=== PATIENT | male | born 1985 | race Caucasian/White ===

== ENCOUNTER 2023-03-16 08:08 | Outpatient (REF) | payer OTHER, SELFPAY ==
[2023-03-16 11:57] LABS: Appearance Urine Clear; Color Urine Yellow; Glucose Urine UA Negative (Negative); Leukocyte Esterase Urine Negative (Negative); Nitrite Urine Negative (Negative); Specific Gravity - Urine 1.025 (1.005-1.025); Urine Blood Negative (Negative); Urine Ketones Negative (Negative); Urine Protein Negative (Neg-Trace)
[2023-03-16 12:06] LABS: Alanine Aminotransferase 25 U/L (0-40); Albumin Level 4.3 g/dL (3.5-5.0); Alkaline Phosphatase 44 U/L (39-117); Anion Gap 12 (12-20); Aspartate Amino Transferase 26 U/L (5-37); Bilirubin Total 0.7 mg/dL (0.0-1.0); Blood Urea Nitrogen 13 mg/dL (9-16); Calcium 9.5 mg/dL (8.4-10.2); Carbon Dioxide 26 mmol/L (22-29); Chloride 106 mmol/L (96-108); Cholesterol 239 mg/dL; Estimated Glomerular Filt Rate > 60; Glucose Fasting 127 mg/dL (60-99); HDL Cholesterol 46 mg/dL; LDL Cholesterol Calculated 165 mg/dl; Potassium 4.7 mmol/L (3.3-5.1); Sodium 139 mmol/L (135-145); Total Protein 7.6 g/dL (6.5-8.0); Triglycerides 143 mg/dL
[2023-03-16 12:28] LABS: TSH reflex Free T4 1.86 uIU/mL (0.32-4.0)
[2023-03-16 12:41] LABS: Creatinine Urine 220.83 mg/dL; Microalbum/Creatinine Ratio Ur 13.1 ug/mg cr
== END 2023-03-16 08:09 | disposition home or self-care (01) ==
LOC: HO.WFDLDS 08:08
PROVIDERS: Visit Provider Family Medicine
DX: Z00.00 Encounter for general adult medical examination without abnormal findings (principal); I10 Essential (primary) hypertension
CPT/HCPCS: 36415; 80053; 80061; 81003; 82043; 84443

== ENCOUNTER 2023-03-25 13:55 | Outpatient (AMB) | payer OTHER, SELFPAY ==
[2023-03-25 13:58] VITALS: BP 124/74; PULSE 63; O2SAT 97; BMI 30.3
--- NOTE | 2023-03-25 13:58 | A.OFFPC_ITS ---
Vital Signs 03/25/23 13:58 Height 6 ft 1 in Weight 230 lb BMI 30.3 BP 124/74 Blood Pressure Location Lt brachial Position Sitting Pulse 63 Pulse Source Pulse Oximeter Temp Source Oral Pulse Oximetry (%) 97 Oxygen Delivery Method Room Air Intake Visit Reasons: CPE with f/u labs and health maintenance Intake Note: Patient is here for a physical and follow up on labs. Allergies No Known Allergies Allergy (Verified 03/25/23 14:01) Tobacco use date assessed: 03/25/23 Dental Screening Dental Screen Date: 03/25/23 Did you have a dental visit in the last 12 months?: Yes Did you have a dental problem in the last 6 months where you did not have access to dental care?: No Was dental information given to patient?: Patient has dentist HPI CPE with f/u labs and health maintenance HPI Details 37 y/o male presents for a CPE with f/u labs and health maintenance. Labs were drawn 03/16/23. Reviewed labs with pt. Elevated fasting glucose of 127. A1c today 03/25/23 is 5.2%. Triglycerides 143. TC 239. LDL 165. HDL 46. Pt reports ongoing hearing changes and he states he has not been contacted by the hearing center yet. [facility] Medical History No pertinent past medical history Right foot injury Surgical History No pertinent past surgical history Family History Father Diabetes Mother Osteoporosis Social History Household Members: Family Housing: House Are you a primary child care attendant school to a significant other at home: Yes Do you presently have visiting nurse or other home services: Yes 75 years or older and lives alone: No Alcohol intake: current Alcohol intake frequency: a few times a month Alcohol type: beer Patient Tobacco Use Status: Former Tobacco user e-Cigarette/Vaping Use: Never Used service: No Current occupational status: employed 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 [employer] Cognitive needs: No Hearing needs: No Vision needs: No Review of Systems Const Denies chills, Denies fatigue, Denies fever(s), Denies headache(s) and Denies weakness Eyes Denies change in vision ENT Denies dizziness, Denies headache(s), Denies hearing loss, Denies nasal congestion, Denies sinus pain, Denies sinus pressure and Denies sore throat Card Denies chest pain, Denies lightheadedness, Denies dyspnea and Denies other (palpitations) Resp Denies cough, Denies dyspnea and Denies wheezing GI Denies abdominal pain, Denies melena, Denies hematochezia, Denies change in bowel habits, Denies dyspepsia and Denies nausea Denies hematuria and Denies dysuria Musc Denies abnormal gait, Denies myalgias, Denies arthralgias, Denies numbness and Denies tingling Skin/Breast Denies rash, Denies unusual bruising and Denies wounds Neuro Denies abnormal gait, Denies dizziness, Denies headache(s), Denies memory loss, Denies numbness, Denies Sensory deficit (Neuro), Denies tingling and Denies weakness Psych Denies anxiety, Denies depression and Denies memory loss Endo Denies cold intolerance, Denies fatigue, Denies heat intolerance, Denies polydipsia and Denies polyuria Patrice/Lymph Denies easy bleeding and Denies easy bruising Aller/Immun Denies wheezing Physical exam (Primary Care) Vital Signs: Last Vital Signs Pulse 63 03/25/23 13:58 BP 124/74 03/25/23 13:58 Pulse Ox 97 03/25/23 13:58 Oxygen Delivery Method Room Air 03/25/23 13:58 BMI result Body Mass Index 30.3 Tobacco/Smoking Status: Tobacco use Status Tobacco use date assessed 03/25/23 03/25/23 14:08 Patient Tobacco Use Status Former Tobacco user 03/25/23 13:59 e-Cigarette/Vaping Use Never Used 03/25/23 13:59 Const General: no acute distress, well developed, alert and awake Nutritional Appearance: well nourished Orientation/consciousness: patient oriented x3 HENMT Head: Yes normocephalic and Yes atraumatic Ears: hearing grossly normal bilaterally and TM's normal bilaterally General nose exam: Normal external nose present and Normal nares present Mouth: Normal oral and palatal mucosa present and moist mucous membranes Teeth and gingiva: dentition normal Throat: Yes posterior oropharynx normal Eyes General: appearance normal, both eyes and all related structures Pupils: Equal, round and reactive pupils present and Pupil accommodation reflex normal EOM: EOMs intact bilaterally Neck Neck: Yes normal visual inspection, Yes no lymphadenopathy and Yes trachea midline Thyroid: Thyroid normal Carotids: no bruits Lymphatic: no lymphadenopathy noted Chest Chest palpation & inspection: normal inspection of the chest Resp Effort & Inspection: normal respiratory effort Auscultation: clear to auscultation bilaterally Cardio Rate: regular rate Rhythm: regular rhythm Heart sounds: S1 normal heart sound present, S2 normal heart sound present, no gallops, no murmurs and no rubs Bruits: no abdominal aortic bruits and no carotid bruits GI Palpation (GI): No Abdominal aortic bruit present, Soft to palpation, nontender, No hepatosplenomegaly present and No Rebound tenderness present Auscultation: normal bowel sounds General: Yes no CVA tenderness Back/Spine/Pelvis Back: no CVA tenderness Cervical Spine: cervical ROM normal and No Cervical spine tenderness Thoracic/Lumbar Spine: thoraco-lumbar ROM normal, No pain with thoraco-lumbar ROM, No thoracic spinal tenderness and No lumbar spinal tenderness Skin Lesions: no lesions Rashes: no rashes Trauma: no lacerations or abrasions Wounds: no wounds Nails: normal Neuro General: patient oriented x3 Cranial nerves: Yes Equal, round and reactive pupils present Cognition (Neuro): normal cognition Gait exam (Neuro): Normal gait present Motor exam (neuro): 5/5 motor strength present throughout Sensory Exam: No Sensory deficit (Neuro) Deep tendon reflexes (DTR's): Right patellar reflex intensity grade: 2+ and Left patellar reflex intensity grade: 2+ Extrem General: Yes normal to inspection and No edema Psych Appearance: grossly normal Affect: normal affect Attitude: cooperative Thought process: Normal thought process present Assessment and Plan Assessment & Plan (1) Adult general medical exam: Code(s): Z00.00 - Encounter for general adult medical examination without abnormal findings Plan: 37-year-old male presents for complete physical exam Encouraged healthy diet with active lifestyle and plenty of exercise (2) Hyperlipidemia: Code(s): E78.5 - Hyperlipidemia, unspecified Plan: Encouraged a diet lower in saturated fats and cholesterol. Also advised exercise and weight loss He will work on these lifestyle changes and we will repeat his lipids in about 3 months. If he is unable to make a significant improvement we will discuss medications. (3) Elevated fasting glucose: Code(s): R73.01 - Impaired fasting glucose Plan: Elevated fasting blood sugar but patient is unsure that he had a complete fast. A1c was 5.2% which is in the normal range We can repeat this (4) Change in hearing: Code(s): H91.90 - Unspecified hearing loss, unspecified ear Plan: Had referred him to audiology but they have not called him. Will ask the office to the status of this referral. (5) GERD (gastroesophageal reflux disease): Code(s): K21.9 - Gastro-esophageal reflux disease without esophagitis Plan: Significant GERD and had given him omeprazole. This was quite effective but began to give him significant headaches which resolved with discontinuance of medication. Will have him try famotidine and will refer him to GI Coding Level of Care Code Est Pt Level 3 (39144) Est Pt Prev Care 18-39y(33289) Diagnoses Adult general medical exam Z00.00 Hyperlipidemia E78.5 Elevated fasting glucose R73.01 Change in hearing H91.90 GERD (gastroesophageal reflux disease) K21.9
== END 2023-03-25 14:43 | disposition home or self-care (01) ==
PROVIDERS: PCP Family Medicine; Visit Provider Family Medicine
DX: Z00.00 Encounter for general adult medical examination without abnormal findings (principal); E78.5 Hyperlipidemia, unspecified; K21.9 Gastro-esophageal reflux disease without esophagitis; R73.01 Impaired fasting glucose; H91.93 Unspecified hearing loss, bilateral
CPT/HCPCS: 83036; 99395

== ENCOUNTER 2023-06-03 13:58 | Outpatient (REF) | payer OTHER, SELFPAY ==
[2023-06-03 16:20] LABS: Hematocrit 41.5 % (42.0-52.0); Hemoglobin 13.7 g/dl (14.0-18.0); Mean Corpuscular Hemoglobin 30.6 pg (27.0-33.0); Mean Corpuscular Volume 92.6 fL (80.0-98.0); Mean Platelet Volume 10.3 fL (9.4-12.4); Platelet Count 255 X10*3/uL (160-400); Red Blood Count 4.48 X10*6/uL (4.60-5.80); Red Cell Distribution Width 12.5 % (11.0-16.0); White Blood Count 6.7 X10*3/uL (4.8-10.8)
[2023-06-03 16:30] LABS: Estimated Average Glucose 100 mg/dL; Hemoglobin A1c % 5.1 % (<6.0)
[2023-06-03 16:43] LABS: Anion Gap 11 (12-20); Blood Urea Nitrogen 13 mg/dL (9-16); Calcium 9.3 mg/dL (8.4-10.2); Carbon Dioxide 28 mmol/L (22-29); Chloride 105 mmol/L (96-108); Cholesterol 195 mg/dL (<200); Estimated Glomerular Filt Rate > 60; Glucose Fasting 98 mg/dL (60-99); HDL Cholesterol 39 mg/dL (>40); LDL Cholesterol Calculated 120 mg/dL (<100); Potassium 4.2 mmol/L (3.3-5.1); Sodium 140 mmol/L (135-145); Triglycerides 184 mg/dL (<150)
== END 2023-06-03 13:59 | disposition home or self-care (01) ==
LOC: HO.LAB 13:58
PROVIDERS: PCP Family Medicine; Visit Provider Nurse Practitioner Family
DX: Z00.00 Encounter for general adult medical examination without abnormal findings (principal); K21.9 Gastro-esophageal reflux disease without esophagitis; R73.01 Impaired fasting glucose; E78.5 Hyperlipidemia, unspecified; R19.8 Other specified symptoms and signs involving the digestive system and abdomen; K62.5 Hemorrhage of anus and rectum
CPT/HCPCS: 36415; 80048; 80061; 83036; 85027

== ENCOUNTER 2023-06-03 13:58 | Outpatient (AMB) | payer OTHER, SELFPAY ==
--- NOTE | 2023-06-03 14:14 | MHC.OFFVIS ---
Intake Vital Signs 06/03/23 14:17 Height 6 ft 1 in Weight 211 lb BMI 27.8 BP 98/59 L Blood Pressure Location Lt brachial Position Sitting Pulse 52 Intake Visit Reasons: esophageal reflux disease without esophagitis Intake Note: Patient new consult for GERD. Patient cc: acid reflex on and off, some anal pressure with some blood on and off, denies any other GI issues. 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 Patient was sent to of for evaluation occasional blood in the stool. Patient does reports occasional blood after bowel movement. Patient reports that it does not happen every time. Patient does report to be constipated. However he does report occasionally he might have a postprandial loose stools. Patient denies any family history of colorectal cancer. Denies any issues with anesthesia in the past. No history of sleep apnea. Occasional acid reflux depending on what he eats. Patient reports that he considers him self fairly healthy. [facility] Medical History Right foot injury No pertinent past medical history Surgical History No pertinent past surgical history Family History Father Diabetes Mother Osteoporosis Household Members: Family Housing: House Are you a primary patient care to a significant other at home: Yes Do you presently have visiting nurse or other home services: Yes 75 years or older and lives alone: No Alcohol intake: current Alcohol intake frequency: a few times a month Alcohol type: beer Patient Tobacco Use Status: Former Tobacco user e-Cigarette/Vaping Use: Never Used service: No Current occupational status: employed 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 [employer] Cognitive needs: No Hearing needs: No Vision needs: No Review of Systems Const Denies weight gain and Denies weight loss ENT Reports no additional complaints, Denies dysphagia and Denies odynophagia Card Reports no additional complaints Resp Reports no additional complaints GI Denies abdominal pain, Denies belching, Denies melena, Denies bloating, Denies change in bowel habits, Denies dysphagia, Denies excessive flatus, Denies dyspepsia, Reports heartburn (occasional), Denies diarrhea, Denies loose stools, Denies nausea, Denies odynophagia and Denies vomiting Reports no additional complaints Musc Reports no additional complaints Neuro Reports no additional complaints Psych Reports no additional complaints Endo Reports no additional complaints Physical Exam Vital Signs: Last Vital Signs Pulse 52 06/03/23 14:17 BP 98/59 L 06/03/23 14:17 BMI result Body Mass Index 27.8 Const General: healthy appearing, no acute distress and well developed Nutritional Appearance: well nourished Orientation/consciousness: patient oriented x3 HEENT Head: Yes normal to inspection, Yes normocephalic and Yes atraumatic Face and sinus: Yes normal facial exam Mouth: Normal oral and palatal mucosa present Throat: Yes posterior oropharynx normal, Yes tonsils normal and Yes uvula midline Eyes General: appearance normal, both eyes and all related structures Neck Neck: Yes normal visual inspection, Yes full ROM and Yes trachea midline Thyroid: Thyroid normal Resp Effort & Inspection: normal respiratory effort, able to speak in complete sentences, no tracheal deviation and symmetric chest movement Auscultation: clear to auscultation bilaterally Cardio Rate: regular rate Heart sounds: S1 normal heart sound present and S2 normal heart sound present GI Inspection: Yes normal to inspection and No distended Palpation (GI): Soft to palpation, not firm, nontender and No hepatosplenomegaly present Auscultation: normal bowel sounds General: Yes no CVA tenderness Back/Spine/Pelvis Back: no CVA tenderness Skin General skin exam: elasticity normal, turgor normal and dry skin Neuro General: patient oriented x3 Psych Appearance: grossly normal Mental Status: mental status grossly normal Assessment & Plan Assessment & Plan (1) GERD (gastroesophageal reflux disease): Code(s): K21.9 - Gastro-esophageal reflux disease without esophagitis Qualifiers: Esophagitis presence: esophagitis presence not specified Qualified Code(s): K21.9 - Gastro-esophageal reflux disease without esophagitis (2) Abnormal bowel movement: Code(s): R19.8 - Other specified symptoms and signs involving the digestive system and abdomen (3) Rectal bleed: Code(s): K62.5 - Hemorrhage of anus and rectum Plan Will check CBC, if patient will be anemic will send him for colonoscopy. Patient can take Citrucel to help him bulk a stool and Colace in the evening. Patient will call the office if he will continue to have rectal bleed. Patient denies any family history of colorectal cancer. No issues with anesthesia in the past. No history of sleep apnea. Not on any anticoagulation medication. Patient has a low blood pressure today encouraged to drink plenty fluids. Patient denies any dizziness. I will see patient after the procedure if anemic otherwise on as needed basis. Patient is agreeable to this plan and verbalizes understanding of instructions. He was given the opportunity to ask questions and all questions answered. Thank you for allowing me to participate in his care Orders: Orders Complete Blood Count no Diff 06/03/23 K21.9 - Gastro-esophageal reflux disease without esophagitis Medications: New methylcellulose (laxative) (Citrucel) take it with full glass of water 500 mg PO DAILY 30 tabs 5RF K59.00 - Constipation, unspecified docusate sodium 100 mg PO DAILY 30 caps 3RF K59.00 - Constipation, unspecified Discontinued calcium polycarbophil Discontinued Reason: Doctor's Order 625 mg PO DAILY 30 days 30 tabs 3RF Coding Level of Care Code New Pt Level 3 (77452) Diagnoses Gastroesophageal reflux disease, unspecified whether esophagitis present K21.9 Esophagitis presence: esophagitis presence not specified Abnormal bowel movement R19.8 Rectal bleed K62.5 Time Spent (min) 40 Comment 30 minutes spent with patient and additional 10 minutes spent reviewing his records
[2023-06-03 14:17] VITALS: BP 98/59; PULSE 52; BMI 27.8
== END 2023-06-03 14:47 | disposition home or self-care (01) ==
PROVIDERS: PCP Family Medicine; Visit Provider Nurse Practitioner Family
DX: K21.9 Gastro-esophageal reflux disease without esophagitis (principal); R19.8 Other specified symptoms and signs involving the digestive system and abdomen; K62.5 Hemorrhage of anus and rectum
CPT/HCPCS: 99203

== ENCOUNTER 2023-06-17 13:40 | Outpatient (AMB) | payer OTHER, SELFPAY ==
[2023-06-17 13:57] VITALS: BP 118/62; PULSE 57; RESP 13; TEMP 36.4; O2SAT 99; BMI 29.1
--- NOTE | 2023-06-17 13:57 | MHC.PC.OV ---
Vital Signs 06/17/23 13:57 Height 6 ft 1 in Weight 220 lb 6 oz BMI 29.1 BP 118/62 Blood Pressure Location Rt brachial Position Sitting Respiration 13 Pulse 57 Pulse Source Pulse Oximeter Temp 97.6 F Temp Source Temporal Artery Scan Pulse Oximetry (%) 99 Oxygen Delivery Method Room Air Intake Visit Reasons: f/u hyperlipidemia Intake Note: Patient would like to now if he was suppose to have blood work done prior to this appt. 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 Labs were drawn 06/02/23. Reviewed labs with pt. Mild anemia. A1c 5.1%. Triglycerides 184. TC 195. LDL 120. HDL low at 39. He reports labs above were not fasting. [facility] Medical History Right foot injury No pertinent past medical history Surgical History No pertinent past surgical history Family History Father Diabetes Mother Osteoporosis Social History Household Members: Family Housing: House Are you a primary childcare worker to a significant other at home: Yes Do you presently have visiting nurse or other home services: Yes 75 years or older and lives alone: No Alcohol intake: current Alcohol intake frequency: a few times a month Alcohol type: beer Patient Tobacco Use Status: Former Tobacco user e-Cigarette/Vaping Use: Never Used service: No Current occupational status: employed 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 [employer] Cognitive needs: No Hearing needs: No Vision needs: No Review of Systems Const Denies chills, Denies fatigue, Denies fever(s), Denies headache(s) and Denies weakness ENT Denies dizziness and Denies headache(s) Card Denies chest pain, Denies lightheadedness, Denies dyspnea and Denies other (Palpitations) Resp Denies cough, Denies dyspnea, Denies wheezing and Denies other ( shortness of breath) Musc Denies numbness and Denies tingling Neuro Denies dizziness, Denies headache(s), Denies numbness, Denies tingling, Denies paresthesias and Denies weakness Psych Denies anxiety and Denies depression Endo Denies fatigue Aller/Immun Denies wheezing Physical exam (Primary Care) Vital Signs: Last Vital Signs Temp 97.6 F 06/17/23 13:57 Pulse 57 06/17/23 13:57 Resp 13 06/17/23 13:57 BP 118/62 06/17/23 13:57 Pulse Ox 99 06/17/23 13:57 Oxygen Delivery Method Room Air 06/17/23 13:57 BMI result Body Mass Index 29.1 Tobacco/Smoking Status: Tobacco use Status Tobacco use date assessed 03/25/23 06/17/23 14:04 Patient Tobacco Use Status Former Tobacco user 06/17/23 14:04 e-Cigarette/Vaping Use Never Used 06/17/23 14:04 Const General: no acute distress and well developed Nutritional Appearance: well nourished Orientation/consciousness: patient oriented x3 HENMT Head: Yes normocephalic and Yes atraumatic Eyes General: appearance normal, both eyes and all related structures Pupils: Equal, round and reactive pupils present EOM: EOMs intact bilaterally Resp Effort & Inspection: normal respiratory effort Auscultation: clear to auscultation bilaterally Cardio Rate: regular rate Rhythm: regular rhythm Heart sounds: S1 normal heart sound present, S2 normal heart sound present, no gallops, no murmurs and no rubs Neuro General: patient oriented x3 and gait normal Cranial nerves: Yes Equal, round and reactive pupils present Psych Affect: normal affect Assessment and Plan Assessment & Plan (1) Hyperlipidemia: Code(s): E78.5 - Hyperlipidemia, unspecified Plan: Patient's?labs?were?drawn?nonfasting. He?also?notes?that?he?has?lost?between?10?and?20?lb?though?he?had?gained?some?back Cholesterol?levels?are?unreliable?as?he?was?not?fasting?and?weight?has?been?in?flux Will?have?him?recheck?these?fasting. (2) Elevated fasting glucose: Code(s): R73.01 - Impaired fasting glucose Plan: Fasting?blood?sugar?and?A1c?are?within?normal?limits. Rechecking?this?as?patient?was?not?fasting (3) Low HDL (under 40): Code(s): E78.6 - Lipoprotein deficiency Plan: Rechecking?lipid (4) Mild anemia: Code(s): D64.9 - Anemia, unspecified Plan: Mild?anemia Patient?has?appointment?with?Gastroenterology. He?has?no?noticeable?bleeding Rechecking?CBC?as?well Orders: Orders Comprehensive [place]. Panel Fast Today E78.5 - Hyperlipidemia, unspecified, Z00.00 - Encounter for general adult medical examination without abnormal findings Lipid Panel Today E78.5 - Hyperlipidemia, unspecified, Z00.00 - Encounter for general adult medical examination without abnormal findings Hemoglobin A1c Today R73.01 - Impaired fasting glucose Complete Blood Count Auto Diff Today D64.9 - Anemia, unspecified, Z00.00 - Encounter for general adult medical examination without abnormal findings Coding Level of Care Code Est Pt Level 4 (18839) Diagnoses Hyperlipidemia E78.5 Elevated fasting glucose R73.01 Low HDL (under 40) E78.6 Mild anemia D64.9
== END 2023-06-17 14:24 | disposition home or self-care (01) ==
PROVIDERS: PCP Family Medicine; Visit Provider Family Medicine
DX: E78.5 Hyperlipidemia, unspecified (principal); R73.01 Impaired fasting glucose; E78.6 Lipoprotein deficiency; D64.9 Anemia, unspecified
CPT/HCPCS: 99214

== ENCOUNTER 2023-07-07 11:18 | Day surgery (SDC) | payer OTHER, SELFPAY ==
--- NOTE | 2023-07-06 11:28 | P.CONAN_ITS ---
Documented by User: Kirsten Lara NP 07/06/23 11:29 HPI - Anesthesia Eval Consult details Narrative: 37yo M for Colonoscopy PMFSH Active Problems Active Problems: All Active Problems (Updated 06/17/23 @ 14:14 by Tucker Vasquez) Mild anemia (Acute) Low HDL (under 40) (Acute) Hyperlipidemia (Acute) Adult general medical exam (Acute) Elevated fasting glucose (Acute) GERD (gastroesophageal reflux disease) (Acute) Abnormal bowel movement (Acute) Change in hearing (Acute) Blood in stool (Acute) Laboratory exam ordered as part of routine general medical examination (Acute) Past Medical History Medical History (Updated 07/07/23 @ 11:37 by Virgie Elam RN) Elevated cholesterol Anemia GERD (gastroesophageal reflux disease) Right foot injury Family History Family History Father Diabetes Mother Osteoporosis Surgical History Surgical History (Updated 07/07/23 @ 11:30 by Virgie Elam RN) Hx of oral surgery Social History Social History Household Members: Family Housing: House Are you a primary resident care spec to a significant other at home: Yes Do you presently have visiting nurse or other home services: Yes Alcohol intake: current Alcohol intake frequency: a few times a month Alcohol type: beer Patient Tobacco Use Status: Former Tobacco user Quit Date: age 22 e-Cigarette/Vaping Use: Never Used Use of substances other than those prescribed or required for medical reasons: No Are you DNR?: No Advance Directives: No Advance Directives Information Provided: Yes service: No Current occupational status: employed 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[employer] Cognitive needs: No Hearing needs: No Vision needs: No Meds Allergies Allergy/AdvReac Type Severity Reaction Status Date / Time No Known Allergies Allergy Verified 07/07/23 11:30 Home Medications Medication Instructions Recorded Confirmed Last Taken Type docosahexaenoic acid (dha)-epa 120 1 cap PO DAILY 01/25/23 07/07/23 06/08/23 History mg-180 mg capsule (Fish Oil) multivitamin 1 tab PO DAILY 01/25/23 07/07/23 06/08/23 History Exam Pertinent Lab Results Pertinent Lab Results: Laboratory Tests 06/03/23 15:30 WBC 6.7 Hgb 13.7 L Hct 41.5 L Plt Count 255 Sodium 140 Potassium 4.2 Chloride 105 Carbon Dioxide 28 BUN 13 Creatinine 0.81 Assessment and Plan Assessment Anesthesia Assessment: Chart Reviewed Documented by User: Rishi Mccann MD 07/07/23 12:24 [facility] Past Medical History Medical History (Updated 07/07/23 @ 11:37 by Virgie Elam RN) Elevated cholesterol Anemia GERD (gastroesophageal reflux disease) Right foot injury Family History Family History Father Diabetes Mother Osteoporosis Family history of problems with anesthesia: No Surgical History Surgical History (Updated 07/07/23 @ 11:30 by Virgie Elam RN) Hx of oral surgery History of Problems with Anesthesia: No Social History Social History Household Members: Family Housing: House Are you a primary resident care spec to a significant other at home: Yes Do you presently have visiting nurse or other home services: Yes Alcohol intake: current Alcohol intake frequency: a few times a month Alcohol type: beer Patient Tobacco Use Status: Former Tobacco user Quit Date: age 22 e-Cigarette/Vaping Use: Never Used Use of substances other than those prescribed or required for medical reasons: No Are you DNR?: No Advance Directives: No Advance Directives Information Provided: Yes service: No Current occupational status: employed 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[employer] Cognitive needs: No Hearing needs: No Vision needs: No Meds Allergies Allergy/AdvReac Type Severity Reaction Status Date / Time No Known Allergies Allergy Verified 07/07/23 11:30 Home Medications Medication Instructions Recorded Confirmed Last Taken Type docosahexaenoic acid (dha)-epa 120 1 cap PO DAILY 01/25/23 07/07/23 06/08/23 History mg-180 mg capsule (Fish Oil) multivitamin 1 tab PO DAILY 01/25/23 07/07/23 06/08/23 History Exam Airway Mallampati Class: II TM Dist: >3cm Neck ROM: Full Loose/Missing/Broken Teeth: No Heart: rrr+[id number] Lungs: cta b/l Assessment and Plan Assessment Anesthesia Assessment: Anesthesia Plan Discussed and PAT Visit Final Anesthetic Review Family History of Problems with Anesthesia: No History of Problems with Anesthesia: No NPO: Yes ASA Class: II Final Preanesthetic Review: No Changes in Pt Med Stat, Meds/Allgs Chart Reviewed, Consent Obtained/Reviewed and Anes Risks/Benef Reviewed Patient Risk: Intermediate Procedure Risk: Intermediate Assessment/Block/Sedation in SS: Assess/Block/Sedation-SS Anesthetic Plan Anesthetic Plan: MAC: and Agree w/ Assess. and Plan Disposition: Standard PACU
[2023-07-07 11:31] VITALS: BMI 28.6
--- NOTE | 2023-07-07 11:31 | MHC.SHP ---
Pre-Procedural Eval Section A Date of Service: 07/07/23 Section B Chief Complaint: Other specified symptoms and signs involving the d Relevant Family History (Specify if Yes): No Relevant Social History: None Present Medications: see Short Stay Collaborative assessment Medical History: Significant History (foot injury) History of Previous Operations: No relevant previous surgery Allergies: Allergies Allergy/AdvReac Type Severity Reaction Status Date / Time No Known Allergies Allergy Verified 07/07/23 11:30 Review of Systems Sugical H&P ROS: Negative: Constitution, Cardiovascular, Respiratory, Neurological, Psychiatric, Hem-Onc, Allergic/Immunologic, Gastrointestinal, Genitourinary, Musculoskeletal, Integumentary, Endocrine and Eyes/Ears/Nose/Throat Exam Surgical H&P Exam: Normal: HEENT, Normal: Heart, Normal: Lungs, Normal: Extremities, Normal: Abdomen, Normal: Skin and Normal: Neurological Plan Diagnosis/Plan: Unchanged I have reviewed the history and physical and performed a pertinent physical examination on my patient. No changes have occurred unless specified. Time Spent With Patient Time: Total time managing care of this patient today ____ minutes.
[2023-07-07 11:50] VITALS: BP 130/55; PULSE 66; RESP 15; TEMP 36.8; O2SAT 99
[2023-07-07] MEDS: Lactated Ringers 1,000 ML 100 ML IVCONT (12:12)
--- NOTE | 2023-07-07 12:12 | P.OP_ITS ---
Operative Note Operative Note Date of Service: 07/07/23 Narrative: Operative Information Procedure Description: Colonoscopy Indication: rectal bleeding Anesthesia: MAC COLONOSCOPY Instrument: Olympus variable stiffness pediatric scope 190L Colonoscopy Monitoring: Vital signs and clinical assessment, continuous EKG monitoring, Pulse oximetry, Carbon Dioxide monitoring and blood pressure monitoring were done throughout the procedure. Colon withdrawal time was 18 minutes. Procedure: The patient was placed in the left lateral decubitis position and pre-procedure medications were administered. After a digital rectal examination of the ano-rectum, the video colonoscope was inserted into the rectum and advanced through the colon to the cecum/TI. The colonoscope was slowly withdrawn in a retrograde panoramic fashion and the colon mucosa was carefully examined including a retroflexed view of the rectum. Findings and interventions are described below. Procedure Difficulty: easy Findings: Terminal Ileum-normal Cecum:normal Ascending Colon: few tics noted Transverse Colon - 14-16 mm flat polyp noted, raised with eleview and removed with hot snare with defect then closed with ultra clip, also 6-8 mm sessile polyp removed with cold snare Descending Colon:normal Sigmoid Colon: mild diverticulosis Rectum: Retroflexion with small internal hemorrhoids, grade I, 4-5 mm sessile polyp removed with cold forceps Anorectum - normal Colon preparation: [place] Bowel Preparation Scale Right colon; 2 Transverse colon: 2 Left colon; 2 (0 = Unprepared colon segment with mucosa not seen due to solid stool that cannot be cleared. 1 = Portion of mucosa of the colon segment seen, but other areas of the colon segment not well seen due to staining, residual stool and/or opaque liquid. 2 = Minor amount of residual staining, small fragments of stool and/or opaque liquid, but mucosa of colon segment seen well. 3 = Entire mucosa of colon segment seen well with no residual staining, small fragments of stool or opaque liquid) Impression and Post Procedure Diagnosis: polyps internal hemorrhoids--likely cause of bleeding diverticular disease Plan: High fiber diet leaflet Avoid straining at stool, epsom salts and sitz bath, anusol supps or cream Repeat Colonoscopy in 3-4 years due to subtle right sided polyps, probably sessile serrated or earlier if clinically indicated Above findings were reviewed with the patient and relevant handouts were provided if indicated.
[2023-07-07 12:50] VITALS: BP 101/53; PULSE 71; RESP 20; TEMP 36.4; O2SAT 98
[2023-07-07 13:05] VITALS: BP 111/59; PULSE 54; RESP 18; TEMP 36.4; O2SAT 99
== END 2023-07-07 13:45 | disposition home or self-care (01) ==
PROVIDERS: PCP Family Medicine; Visit Provider Internal Medicine Gastroenterology
PROC: 0DJD8ZZ Inspection of Lower Intestinal Tract, Via Natural or Artificial Opening Endoscopic (ICD-10-PCS; CPT 45378; principal; 2023-07-07 14:10)
DX: D12.3 Benign neoplasm of transverse colon (principal); K62.1 Rectal polyp; K57.30 Diverticulosis of large intestine without perforation or abscess without bleeding; K64.0 First degree hemorrhoids; R19.8 Other specified symptoms and signs involving the digestive system and abdomen; K62.5 Hemorrhage of anus and rectum; D64.9 Anemia, unspecified; K21.9 Gastro-esophageal reflux disease without esophagitis; E78.5 Hyperlipidemia, unspecified; Z87.891 Personal history of nicotine dependence
CPT/HCPCS: 45385; 45381; 45380; 88305; J2704

== ENCOUNTER → 2023-07-07 11:18 | Outpatient (BNV) | payer OTHER, SELFPAY | PROVIDERS: PCP Family Medicine; Visit Provider Internal Medicine Gastroenterology | DX: K62.5 Hemorrhage of anus and rectum (principal); D12.3 Benign neoplasm of transverse colon; D12.8 Benign neoplasm of rectum; K64.0 First degree hemorrhoids | CPT/HCPCS: 45380; 45381; 45385 ==

== ENCOUNTER 2023-07-22 11:21 | Outpatient (AMB) | payer OTHER, SELFPAY ==
--- NOTE | 2023-07-22 11:48 | MHC.OFFVIS ---
Intake Vital Signs 07/22/23 11:49 Height 6 ft 1.5 in Weight 224 lb 6.889 oz BMI 29.2 BP 118/58 L Blood Pressure Location Rt brachial Position Sitting Pulse 61 Pulse Source Pulse Oximeter Intake Visit Reasons: s/p colon Intake Note: Pt presents to the office today for a s/p colonoscopy. Pt states he is feeling well and denies any GI concerns at this time. Allergies No Known Allergies Allergy (Verified 08/03/23 15:35) HPI s/p colon HPI Details LAST VISIT GERD (gastroesophageal reflux disease) Abnormal bowel movement Rectal bleed Plan Will check CBC, if patient will be anemic will send him for colonoscopy. Patient can take Citrucel to help him bulk a stool and Colace in the evening. Patient will call the office if he will continue to have rectal bleed. Patient denies any family history of colorectal cancer. No issues with anesthesia in the past. No history of sleep apnea. Not on any anticoagulation medication. Patient has a low blood pressure today encouraged to drink plenty fluids. Patient denies any dizziness. I will see patient after the procedure if anemic otherwise on as needed basis. Patient is agreeable to this plan and verbalizes understanding of instructions. He was given the opportunity to ask questions and all questions answered. ? Thank you for allowing me to participate in his care Orders Orders Complete Blood Count no Diff 06/03/23 K21.9 Medications New methylcellulose (laxative) (Citrucel) take it with full glass of water 500 mg PO DAILY 30 tabs 5RF K59.00 docusate sodium 100 mg PO DAILY 30 caps 3RF K59.00 Discontinued calcium polycarbophil Discontinued Reason: Doctor's Order 625 mg PO DAILY 30 days 30 tabs 3RF COLONOSCOPY Findings: Terminal Ileum-normal Cecum:normal Ascending Colon: few tics noted Transverse Colon - 14-16 mm flat polyp noted, raised with eleview and removed with hot snare with defect then closed with ultra clip, also 6-8 mm sessile polyp removed with cold snare Descending Colon:normal Sigmoid Colon: mild diverticulosis Rectum: Retroflexion with small internal hemorrhoids, grade I, 4-5 mm sessile polyp removed with cold forceps Anorectum - normal Colon preparation: [place] Bowel Preparation Scale Right colon; 2 Transverse colon: 2 Left colon; 2 (0 = Unprepared colon segment with mucosa not seen due to solid stool that cannot be cleared. 1 = Portion of mucosa of the colon segment seen, but other areas of the colon segment not well seen due to staining, residual stool and/or opaque liquid. 2 = Minor amount of residual staining, small fragments of stool and/or opaque liquid, but mucosa of colon segment seen well. 3 = Entire mucosa of colon segment seen well with no residual staining, small fragments of stool or opaque liquid) Impression and Post Procedure Diagnosis: polyps internal hemorrhoids--likely cause of bleeding diverticular disease Plan: High fiber diet leaflet Avoid straining at stool, epsom salts and sitz bath, anusol supps or cream Repeat Colonoscopy in 3-4 years due to subtle right sided polyps, probably sessile serrated or earlier if clinically indicated PATHOLOGY RESULTS Diagnosis A. Colon, transverse, polypectomies: Sessile serrated lesion/polyp; negative for cytologic dysplasia. B. Rectum, polypectomy: Hyperplastic mucosal polyp TODAY'S VISIT: Patient is here today for follow-up and to discuss colonoscopy results. Patient denies any ill effects from the prep, anesthesia or procedure itself. Patient reports that he has been feeling well. Has not noticed any more rectal bleed. Patient denies any dyspepsia, dysphagia or odynophagia. Patient denies any rectal pain. Colonoscopy results discussed with patient. Recommendation was made for patient to return for colorectal screening in 3 years. 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 at home: Yes Do you presently have visiting nurse or other home services: Yes 75 years or older and lives alone: No Alcohol intake: current Alcohol intake frequency: a few times a month Alcohol type: beer Patient Tobacco Use Status: Former Tobacco user Quit Date: age 22 e-Cigarette/Vaping Use: Never Used service: No Current occupational status: employed 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 [employer] Cognitive needs: No Hearing needs: No Vision needs: No Review of Systems Const Denies weight gain and Denies weight loss ENT Reports no additional complaints, Denies dysphagia and Denies odynophagia Card Reports no additional complaints Resp Reports no additional complaints GI Denies abdominal pain, Denies belching, Denies melena, Denies bloating, Denies change in bowel habits, Denies dysphagia, Denies excessive flatus, Denies dyspepsia, Denies heartburn, Denies diarrhea, Denies loose stools, Denies nausea, Denies odynophagia and Denies vomiting Reports no additional complaints Musc Reports no additional complaints Neuro Reports no additional complaints Psych Reports no additional complaints Endo Reports no additional complaints Physical Exam Vital Signs: Last Vital Signs Pulse 61 07/22/23 11:49 BP 118/58 L 07/22/23 11:49 BMI result Body Mass Index 29.2 Const General: healthy appearing, no acute distress and well developed Nutritional Appearance: obese Orientation/consciousness: patient oriented x3 HEENT Head: Yes normal to inspection, Yes normocephalic and Yes atraumatic Face and sinus: Yes normal facial exam Mouth: Normal oral and palatal mucosa present Throat: Yes posterior oropharynx normal, Yes tonsils normal and Yes uvula midline Eyes General: appearance normal, both eyes and all related structures Neck Neck: Yes normal visual inspection, Yes full ROM and Yes trachea midline Thyroid: Thyroid normal Resp Effort & Inspection: normal respiratory effort, able to speak in complete sentences, no tracheal deviation and symmetric chest movement Auscultation: clear to auscultation bilaterally Cardio Rate: regular rate GI Inspection: Yes normal to inspection, No distended and Yes obesity Palpation (GI): Soft to palpation, not firm, nontender and No hepatosplenomegaly present Auscultation: normal bowel sounds General: Yes no CVA tenderness Back/Spine/Pelvis Back: no CVA tenderness Skin General skin exam: elasticity normal, turgor normal and dry skin Neuro General: patient oriented x3 Psych Appearance: grossly normal Mental Status: mental status grossly normal Assessment & Plan Assessment & Plan (1) GERD (gastroesophageal reflux disease): Code(s): K21.9 - Gastro-esophageal reflux disease without esophagitis Qualifiers: Esophagitis presence: esophagitis presence not specified Qualified Code(s): K21.9 - Gastro-esophageal reflux disease without esophagitis (2) Abnormal bowel movement: Code(s): R19.8 - Other specified symptoms and signs involving the digestive system and abdomen (3) Rectal bleed: Code(s): K62.5 - Hemorrhage of anus and rectum Plan Colonoscopy results discussed with patient. One sessile serrated polyp found in transverse colon. Hyperplastic polyp in rectum. Most likely rectal bleed caused by hemorrhoids. Will send script for Proctosol. Patient can also take stool softeners. Patient was encouraged to increase fiber intake daily. He will return in our office on as-needed basis. Patient is agreeable to this plan and verbalizes understanding of instructions. He was given the opportunity to ask questions and all questions answered. Thank you for allowing me to participate in his care Medications: New hydrocortisone 2.5% (Proctosol HC) 1 appl NM BID-QID PRN 30 grams 2RF hemorrhoids K64.9 - Unspecified hemorrhoids Coding Level of Care Code Est Pt Level 3 (54183) Diagnoses Gastroesophageal reflux disease, unspecified whether esophagitis present K21.9 Esophagitis presence: esophagitis presence not specified Abnormal bowel movement R19.8 Rectal bleed K62.5 Time Spent (min) 25 Comment 15 minutes spent with patient and additional 10 minutes spent reviewing his records
[2023-07-22 11:49] VITALS: BP 118/58; PULSE 61; BMI 29.2
== END 2023-07-22 12:33 | disposition home or self-care (01) ==
PROVIDERS: PCP Family Medicine; Visit Provider Nurse Practitioner Family
DX: K21.9 Gastro-esophageal reflux disease without esophagitis (principal); R19.8 Other specified symptoms and signs involving the digestive system and abdomen; K62.5 Hemorrhage of anus and rectum
CPT/HCPCS: 99213

== ENCOUNTER → 2023-07-22 11:21 | Outpatient (BNVA) | payer OTHER, SELFPAY | PROVIDERS: PCP Family Medicine; Visit Provider Nurse Practitioner Family ==

== ENCOUNTER 2023-07-29 09:28 | Outpatient (REF) | payer OTHER, SELFPAY ==
[2023-07-29 11:40] LABS: MANUAL DIFF FLAG NO
[2023-07-29 11:56] LABS: Basophils Percent Auto 0.7 % (0-2); Eosinophils Absolute Auto 0.1 X10*3/uL (0.0-0.4); Eosinophils Percent Auto 2.6 % (0-4); Hemoglobin 13.1 g/dl (14.0-18.0); Imm Gran Abs Auto 0.01 X10*3/uL (0.00-0.03); Imm Gran Pct Auto 0.2 % (0.0-0.4); Lymphocytes Absolute Auto 2.6 X10*3/uL (1.2-4.9); Lymphocytes Percent Auto 47.9 % (20-40); Mean Corpuscular HGB Conc 32.8 g/dl (31.0-36.0); Mean Corpuscular Hemoglobin 30.2 pg (27.0-33.0); Mean Corpuscular Volume 92.2 fL (80.0-98.0); Mean Platelet Volume 9.9 fL (9.4-12.4); Monocytes Absolute Auto 0.5 X10*3/uL (0.1-1.2); Monocytes Percent Auto 8.8 % (2-11); Neutrophils Absolute Auto 2.1 x10*3/uL (2.0-8.3); Neutrophils Percent Auto 39.8 % (45-73); Platelet Count 221 X10*3/uL (160-400); Red Blood Count 4.34 X10*6/uL (4.60-5.80); Red Cell Distribution Width 13.2 % (11.0-16.0); White Blood Count 5.4 X10*3/uL (4.8-10.8)
[2023-07-29 12:06] LABS: Estimated Average Glucose 103 mg/dL; Hemoglobin A1c % 5.2 % (<6.0)
[2023-07-29 12:19] LABS: Alanine Aminotransferase 29 U/L (0-40); Albumin Level 4.1 g/dL (3.5-5.0); Alkaline Phosphatase 42 U/L (39-117); Anion Gap 9 (12-20); Aspartate Amino Transferase 28 U/L (5-37); Bilirubin Total 0.4 mg/dL (0.0-1.0); Blood Urea Nitrogen 17 mg/dL (9-16); Calcium 8.7 mg/dL (8.4-10.2); Carbon Dioxide 27 mmol/L (22-29); Chloride 107 mmol/L (96-108); Cholesterol 246 mg/dL (<200); Estimated Glomerular Filt Rate > 60; Glucose Fasting 100 mg/dL (60-99); HDL Cholesterol 53 mg/dL (>40); LDL Cholesterol Calculated 170 mg/dL (<100); Potassium 4.3 mmol/L (3.3-5.1); Sodium 139 mmol/L (135-145); Total Protein 7.2 g/dL (6.5-8.0); Triglycerides 119 mg/dL (<150)
== END 2023-07-29 09:29 | disposition home or self-care (01) ==
LOC: HO.WFDLDS 09:28
PROVIDERS: Visit Provider Family Medicine
DX: Z00.00 Encounter for general adult medical examination without abnormal findings (principal); E78.5 Hyperlipidemia, unspecified; D64.9 Anemia, unspecified; R73.01 Impaired fasting glucose
CPT/HCPCS: 36415; 80053; 80061; 83036; 85025

== ENCOUNTER 2025-03-28 11:42 | Outpatient (AMB) | payer OTHER, SELFPAY ==
--- NOTE | 2025-03-28 11:46 | A.OFFPC_ITS ---
Vital Signs 03/28/25 11:53 Height 6 ft 2 in Weight 221 lb 2 oz BMI 28.4 BP 132/63 Blood Pressure Location Lt brachial Position Sitting Respiration 16 Pulse 62 Pulse Source Pulse Oximeter Temp 97.1 F Temp Source Oral Pulse Oximetry (%) 99 Oxygen Delivery Method Room Air Intake Visit Reasons: med. review labs Intake Note: patient here for follow up and med and labs [employer] Required: No Allergies No Known Allergies Allergy (Verified 03/28/25 11:51) Medication List - Last Reconciled 03/28/25 by Roshan Steel MD docosahexaenoic acid-epa 120-180 mg (Fish Oil) 1 cap PO DAILY multivitamin 1 tab PO DAILY Tobacco use date assessed: 03/28/25 Dental Screening Dental Screen Date: 03/28/25 Did you have a dental visit in the last 12 months?: No Did you have a dental problem in the last 6 months where you did not have access to dental care?: No Was dental information given to patient?: Patient has dentist HPI med. review labs HPI Details 39 y/o male presents to f/u [facility] itions. No recent labs to review. Hx of elevated lipids, low HDL, mild anemia. Pt notes he has lost a bit of weight since his last office visit in 2022. Has stopped taking multivitamins/fish oil. Reports knee pain when he starts running. Reports R shoulder pain [facility] Medical History Elevated cholesterol Anemia GERD (gastroesophageal reflux disease) Right foot injury Surgical History Hx of oral surgery Family History Father Diabetes Mother Osteoporosis Social History Household Members: Family Housing: House Are you a primary morning caregiver to a significant other at home: Yes Do you presently have visiting nurse or other home services: Yes 75 years or older and lives alone: No Alcohol intake: current Alcohol intake frequency: a few times a month Alcohol type: beer Patient Tobacco Use Status: Former Tobacco user e-Cigarette/Vaping Use: Never Used Second Hand Smoke Exposure: No service: No Current occupational status: employed 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 1. Little interest or pleasure in doing things: not at all 2. Feeling down, depressed, or hopeless: not at all 3. Trouble falling or staying asleep, or sleeping too much: not at all 4. Feeling tired or having little energy: not at all 5. Poor appetite or overeating: several days 6. Feeling bad about yourself - or that you are a failure or have let yourself or your family down: not at all 7. Trouble concentrating on things, such as reading the newspaper or watching television: more than half the days 8. Moving or speaking so slowly that other people could have noticed. Or the opposite - being so fidgety or restless that you have been moving around a lot more than usual: more than half the days 9. Thoughts that you would be better off or of hurting yourself in some way: not at all Total score: 5 Source: Developed by Drs. Quintin Harrison, Tiffanie Johnson, Jett Castrejon and colleagues, with an educational magdaleno from [email or web address]. Thrive Questionnaire Date Thrive assessed: 03/21/25 I am a: Patient What is your living situation today?: I have a steady place to live Within the past 12 months, did the food you bought not last and you didn't have the money to get more?: Never true Within the past 12 months, did you worry whether your food would run out before you got money to buy more?: Never true Do you have trouble paying for medicines?: No Do you have trouble getting transportation to medical appointments?: No Do you have trouble paying your heating and electricity bill?: No Do you have trouble taking care of your child, family member or friend?: No Do you have trouble with day-to-day activities such as bathing, preparing meals, shopping, managing finances, etc.?: No Are you currently unemployed and looking for a job?: No Are you interested in more education?: No Please select the resources that you would like help with: None Currently or been in a relationship where the following occur: No concerns reported THRIVE Score: 0 AUDIT C Alcohol Use Questionnaire (AUDIT-C) 1. How often do you have a drink containing alcohol?: 2-4 times a month 2. How many drinks containing alcohol do you have on a typical day when you are drinking?: 3 or 4 3. How often do you have six or more drinks on one occasion?: Less than monthly Total Score: 4 YARIEL-7 AMB Questionnaire YARIEL-7 Feeling nervous, anxious, or on edge: 1 = Several days Not being able to stop or control worryin = Not at all Worrying too much about different things: 1 = Several days Trouble relaxin = Several days Being so restless that it is hard to sit still: 0 = Not at all Becoming easily annoyed or irritable: 1 = Several days Feeling afraid as if something awful might happen: 1 = Several days Total YARIEL-7 score (0-4 normal; 5-9 mild; 10-14 moderate; 15-21 severe): 5 Source: Developed by Drs. Quintin Harrison, Tiffanie Johnson, Jett Castrejon and colleagues, with an educational magdaleno from [email or web address]. Review of Systems Const Denies chills, Denies fatigue, Denies fever(s), Denies headache(s) and Denies weakness ENT Denies dizziness and Denies headache(s) Card Denies dyspnea Resp Denies cough, Denies dyspnea, Denies wheezing and Denies other (shortness of breath) Musc Denies numbness and Denies tingling Neuro Denies dizziness, Denies headache(s), Denies numbness, Denies tingling and Denies weakness Psych Denies anxiety and Denies depression Endo Denies fatigue Aller/Immun Denies wheezing Physical exam (Primary Care) Vital Signs: Last Vital Signs Temp 97.1 F 03/28/25 11:53 Pulse 62 03/28/25 11:53 Resp 16 03/28/25 11:53 BP 132/63 03/28/25 11:53 Pulse Ox 99 03/28/25 11:53 Oxygen Delivery Method Room Air 03/28/25 11:53 BMI result Body Mass Index 28.4 Tobacco/Smoking Status: Tobacco use Status Tobacco use date assessed 03/28/25 03/28/25 11:57 Patient Tobacco Use Status Former Tobacco user 08/28/25 11:47 e-Cigarette/Vaping Use Never Used 03/28/25 11:47 PHQ-9: PHQ-9 Score PHQ-9: Total score 5 03/28/25 11:48 Thrive Assessment: Date of Thrive Assessment Date Thrive assessed 03/21/25 03/28/25 11:47 Currently or been in a relationship where the following occur: No concerns reported Const General: well developed; No acute distress Nutritional Appearance: well nourished Orientation/consciousness: patient oriented x3 HENMT Head: Yes normocephalic and Yes atraumatic Eyes General: appearance normal, both eyes and all related structures Pupils: Equal, round and reactive pupils present EOM: EOMs intact bilaterally Resp Effort & Inspection: normal respiratory effort Neuro General: patient oriented x3 and gait normal Cranial nerves: Yes Equal, round and reactive pupils present Psych Affect: normal affect Coding Level of Care Code Est Pt Level 4 (56883) Diagnoses Mild anemia D64.9 Hyperlipidemia E78.5 Knee pain M25.569 Right shoulder pain M25.511 Elevated fasting glucose R73.01 Assessment & Plan Assessment & Plan (1) Mild anemia: Code(s): D64.9 - Anemia, unspecified Category: Medical Plan: Will have patient get blood drawn and recheck CBC Will discuss next visit (2) Hyperlipidemia: Code(s): E78.5 - Hyperlipidemia, unspecified Category: Medical Plan: We had been following patient's cholesterol levels but he was lost to care for almost 2 years. Will recheck lipids (3) Knee pain: Code(s): M25.569 - Pain in unspecified knee Category: Medical Plan: Knee pain when he starts running Advised him to start with an exercise program to strengthen leg muscles Begin running gradually Also consider other exercises such as cycling. (4) Right shoulder pain: Code(s): M25.511 - Pain in right shoulder Category: Medical Plan: History of right shoulder pain which is improving. Pain with abduction and tenderness was at right supraspinatus muscle This seems mostly resolved. He will let me know if he does not continue to improve or if it worsens (5) Elevated fasting glucose: Code(s): R73.01 - Impaired fasting glucose Category: Medical Plan: Will recheck fasting blood sugar and A1c Orders: Orders Microalbumin, Random (w Creat) Today I10 - Essential (primary) hypertension Prostate Specific Antigen Scr Today Z12.5 - Encounter for screening for malignant neoplasm of prostate TSH reflex Free T4 Today Z00.00 - Encounter for general adult medical examination without abnormal findings Complete Blood Count Auto Diff Today Z00.00 - Encounter for general adult medical examination without abnormal findings Comprehensive [place]. Panel Fast Today Z00.00 - Encounter for general adult medical examination without abnormal findings Lipid Panel Today Z00.00 - Encounter for general adult medical examination without abnormal findings UA CC w/rflx Micro + Cult Today Z00.00 - Encounter for general adult medical examination without abnormal findings Hemoglobin A1c Today R73.01 - Impaired fasting glucose
[2025-03-28 11:53] VITALS: BP 132/63; PULSE 62; RESP 16; TEMP 36.2; O2SAT 99; BMI 28.4
--- OUTSIDE RECORDS SUMMARY | 2025-03-28 12:53 | XMS_ITS | Clinical Summary ---
Author Organization [facility] Address [address] [place] [phone] Phone Care Team Providers Care Drill Foreman Name Role Phone Roshan Steel MD Primary Care Provider Allergies No known active allergies Medications No known medications Active Problems No known active problems Encounters Date Type Department Care Team Description 01/26/2025 9:10 AM EDT Office Visit [facility] [address] [address] Amber Christiansen CNP Influenza B (Primary Dx) from Last 3 Months Immunizations Immunization Administration Dates Next Due COVID-19 Pfizer Comirnaty Vaccine 12+ 08/05/2023 Influenza Quadrivalent MDCK Preservative Free IM 05/28/2022 Influenza Quadrivalent Preservative Free IM 11/2023,06/13/2021,05/17/2020 Tdap 01/11/2016 Social History Tobacco Use Types Packs/Day Years Used Date Smoking Tobacco: Former Cigarettes Smokeless Tobacco: Never Tobacco Cessation:Counseling Given: Not Answered Education Answer Date Recorded Are you interested in more education? Not on jeff e 03/20/2024 Are you concerned about learning? Not on file 03/20/2024 No 03/20/2024 No 03/20/2024 Digital Access Answer Date Recorded No 03/20/2024 No 03/20/2024 Reliable internet access at home? Not on file 03/20/2024 Device with a working camera? Not on file Sex and Gender Information Value Date Recorded Sex Assigned at Not on file Legal Sex Male 9:14 PM EDT Gender Identity Not on file Sexual Orientation Not on file Last Filed Vital Signs Vital Sign Reading Time Taken Comments Blood Pressure 112/71 01/26/2025 9:19 AM EDT Pulse 109 01/26/2025 9:19 AM EDT Temperature 37.7 C (99.9 F) 01/26/2025 9:19 AM EDT Respiratory Rate 20 01/26/2025 9:19 AM EDT Oxygen Saturation 96% 01/26/2025 9:19 AM EDT Inhaled Oxygen Concentration - - Weight - - Height - - Body Mass Index - - Plan of Treatment Health Maintenance Due Date Last Done Comments LIPID PANEL 1985 DEPRESSION SCREENING 1997 SMOKING Hx and SMOKELESS TOBACCO SCREENING 1998 HEPATITIS C SCREENING 2003 HIV ONE-TIME SCREENING (18-65 YEARS) 2003 COVID-19 VACCINE () 04/01/2024 08/05/2023, 05/28/2022, 07/11/2021, Additional history exists Adult Td,Tdap Booster 01/10/2026 01/11/2016 HEPATITIS A VACCINES Aged Out No long er eligible based on patient's age to complete this topic HIB VACCINES Aged Out No longer eligi ble based on patient's age to complete this topic MENINGOCOCCAL VACCINES (ACWY) Aged Out No longer eligible based on patient's age to complete this topic MENINGOCOCCAL VACCINES (B) Aged Out N o longer eligible based on patient's age to complete this topic PNEUMOCOCCAL VACCINES (0-49 years) Aged Out No longer eligible based on patient's age to complete this topic Medical Devices Not on file Procedures Procedure Name Priority Date/Time Associated Diagnosis Comments POCT COVID-19 RT-PCR/INFLUENZA A & B/RSV CEPHEID Routine 01/26/2025 10:16 AM EDT POCT COVID-19 RT-PCR/INFLUENZA A & B/RSV CEPHEID Routine 01/26/2025 9:24 AM EDT POCT RAPID STREP A Routine 01/26/2025 9: 24 AM EDT from Last 3 Months Results * (ABNORMAL) POCT COVID-19 RT-PCR/Influenza A & B/RSV (Cepheid) (01/26/2025 10:16 AM EDT) Only the most recent of2 resultswithin the time period is included. RSV PCR Negative Negative [facility] SARS-CoV-2 (COVID-19) Negative Negative [facility] POC Influenza A PCR Negative Negative [facility] POC Influenza B PCR Positive(A) Negative [facility] 01/26/2025 10:1 6 AM EDT 01/26/2025 10:56 AM EDT Amber Christiansen [facility] POINT OF CARE TEST ORD ERABLES Final Result [facility] [address] [address], [facility] [phone] * POCT Rapid Strep A (01/26/2025 9:24 AM EDT) Pathologist [facility] Strep A, PCR Not Detected Not Detected C [facility] 01/26/2025 9:24 AM EDT 01/26/2025 9:52 AM EDT Amber Christiansen [facility] POINT OF CARE TEST ORD ERABLES Final Result [facility] [place] [address], [facility] [phone] from Last 3 Months Insurance O PHCS S S S S S Care Teams Drill Foreman Relationship Specialty Start Date End Date Roshan Steel MD [address] [place] [address] PCP - General Family Medicine 03/20/24 Additional Source Comments The information contained in this document represents components of the legal health record. It is not the complete legal health record.[facility]
== END 2025-03-28 13:03 | disposition home or self-care (01) ==
LOC: HO.HMCFM 11:43
PROVIDERS: PCP Family Medicine; Visit Provider Family Medicine
DX: D64.9 Anemia, unspecified (principal); E78.5 Hyperlipidemia, unspecified; M25.569 Pain in unspecified knee; M25.511 Pain in right shoulder; R73.01 Impaired fasting glucose

== ENCOUNTER 2025-04-05 07:44 | Outpatient (REF) | payer OTHER, SELFPAY ==
--- OUTSIDE RECORDS SUMMARY | 2025-04-05 07:46 | XMS_ITS | Clinical Summary ---
Author Organization [facility] Address [address] [place] [phone] Phone Care Team Providers Care Director Of Physical Therapy Name Role Phone Roshan Steel MD Primary Care Provider Allergies No known active allergies Medications No known medications Active Problems No known active problems Encounters Date Type Department Care Team Description 01/26/2025 9:10 AM EDT Office Visit [facility] at [address] [address] Amber Christiansen CNP Influenza B (Primary Dx) [...] 2003 HIV ONE-TIME SCREENING (18-65 YEARS) 2003 INFLUENZA VACCINE (#1) 2025 , 05/28/2022, 06/13/2021, Additional history exists COVID-19 VACCINE ( season) 2025 08/05/2023, 05/28/2022, 07/11/2021, Additional history exists Adult [...] of2 resultswithin the time period is included. [facility] RSV PCR Negative Negative [facility] SARS-CoV-2 (COVID-19) Negative Negative [facility] POC Influenza A PCR Negative Negative [facility] POC Influenza B PCR Positive(A) Negative [facility] 01/26/2025 10:1 6 AM EDT 01/26/2025 10:56 AM EDT Amber Christiansen CNP POINT OF CARE TEST ORD ERABLES Final Result [facility] [address] [address], [facility] [phone] * POCT Rapid Strep A (01/26/2025 9:24 AM EDT) [facility] Strep A, PCR Not Detected Not Detected C [facility] 01/26/2025 9:24 AM EDT 01/26/2025 9:52 AM EDT Amber Christiansen [facility] POINT OF CARE TEST ORD ERABLES Final Result [facility] [address] [address], [facility] [phone] from Last 3 Months Insurance O PHCS [address] [place], [place] [address] [place], [place] [id number] Care Teams Director Of Physical Therapy Relationship Specialty Start Date End Date Roshan Steel MD [address] [place] [address] PCP - General Family Medicine 03/20/24 Additional Source Comments The information contained in this document represents components of the legal health record. It is not the complete legal health record.[facility]
[2025-04-05 11:12] LABS: MANUAL DIFF FLAG NO
[2025-04-05 11:13] LABS: Appearance Urine Clear; Glucose Urine UA Negative (Negative); PH 7.0 (5.0-9.0); Specific Gravity - Urine <= 1.005 (1.005-1.025)
[2025-04-05 11:23] LABS: Hematocrit 42.2 % (42.0-52.0); Hemoglobin 14.1 g/dl (14.0-18.0); Imm Gran Abs Auto 0.01 X10*3/uL (0.00-0.03); Imm Gran Pct Auto 0.2 % (0.0-0.4); Lymphocytes Absolute Auto 2.6 X10*3/uL (1.2-4.9); Mean Corpuscular HGB Conc 33.4 g/dl (31.0-36.0); Mean Corpuscular Hemoglobin 29.4 pg (27.0-33.0); Mean Corpuscular Volume 88.1 fL (80.0-98.0); NRBC Abs Auto 0.000 X10*3/uL (0.0-0.012); NRBC Pct Auto 0.0 /100WBC (0.0-0.2); Platelet Count 232 X10*3/uL (160-400); Red Blood Count 4.79 X10*6/uL (4.60-5.80); White Blood Count 5.3 X10*3/uL (4.8-10.8)
[2025-04-05 11:37] LABS: Hemoglobin A1C 124.0500 umol/L; Total Hemoglobin (HGBA1C) 3627.7422 umol/L
[2025-04-05 11:51] LABS: Alanine Aminotransferase 61 U/L (0-40); Albumin Level 4.3 g/dL (3.5-5.0); Alkaline Phosphatase 60 U/L (39-117); Anion Gap 9 (12-20); Aspartate Amino Transferase 41 U/L (5-37); Blood Urea Nitrogen 13 mg/dL (9-16); Calcium 9.1 mg/dL (8.4-10.2); Carbon Dioxide 28 mmol/L (22-29); Chloride 106 mmol/L (96-108); Cholesterol 168 mg/dL (<200); Estimated Glomerular Filt Rate > 60; HDL Cholesterol 39 mg/dL (>40); Potassium 4.5 mmol/L (3.3-5.1); Sodium 138 mmol/L (135-145); Total Protein 7.1 g/dL (6.5-8.0); Triglycerides 161 mg/dL (<150)
[2025-04-05 13:36] LABS: Free T4 (Free Thyroxine) 1.17 ng/dL (0.71-1.85)
== END 2025-04-05 07:45 | disposition home or self-care (01) ==
LOC: HO.WFDLDS 07:44
PROVIDERS: Visit Provider Family Medicine
DX: Z00.00 Encounter for general adult medical examination without abnormal findings (principal); Z12.5 Encounter for screening for malignant neoplasm of prostate; I10 Essential (primary) hypertension; R73.01 Impaired fasting glucose
CPT/HCPCS: 36415; 80053; 80061; 81003; 82043; 82570; 83036; 84153; 84439; 84443; 85025

== ENCOUNTER 2025-04-22 07:57 | Outpatient (REF) | payer OTHER, SELFPAY ==
--- OUTSIDE RECORDS SUMMARY | 2025-04-22 08:00 | XMS_ITS | Clinical Summary ---
Author Organization [facility] Address [address] [place] [id number] Phone Care Team Providers Care Crossband Layer Name Role Phone Roshan Steel MD Primary Care Provider Allergies No known active allergies Medications No known medications Active Problems No known active problems Encounters Date Type Department Care Team Description 01/26/2025 9:10 AM EDT Office Visit [facility] at [address] [address] Amber Christiansen CNP Influenza B (Primary Dx) [...] of2 resultswithin the time period is included. [facility] RSV PCR Negative Negative [facility] SARS-CoV-2 (COVID-19) Negative Negative [facility] POC Influenza A PCR Negative Negative [facility] POC Influenza B PCR Positive(A) Negative [facility] 01/26/2025 10:1 6 AM EDT 01/26/2025 10:56 AM EDT Amber Christiansen CNP POINT OF CARE TEST ORD ERABLES Final Result [facility] [address] [address], [facility] [phone] * POCT Rapid Strep A (01/26/2025 9:24 AM EDT) [facility] Strep A, PCR Not Detected Not Detected C [facility] 01/26/2025 9:24 AM EDT 01/26/2025 9:52 AM EDT Amber Christiansen [facility] POINT OF CARE TEST ORD ERABLES Final Result [facility] [address] [address], [facility] [phone] from Last 3 Months Insurance O PHCS [address] [place], [place] [id number] [place], [place] [id number] Care Teams Crossband Layer Relationship Specialty Start Date End Date Roshan Steel MD [address] [place] [address] PCP - General Family Medicine 03/20/24 Additional Source Comments The information contained in this document represents components of the legal health record. It is not the complete legal health record.[facility]
[2025-04-22 12:19] LABS: Free T4 (Free Thyroxine) 1.23 ng/dL (0.71-1.85); Thyroid Stimulating Hormone < 0.01 uIU/mL (0.32-4.0)
== END 2025-04-22 07:58 | disposition home or self-care (01) ==
LOC: HO.WFDLDS 07:57
PROVIDERS: Visit Provider Family Medicine
DX: E03.9 Hypothyroidism, unspecified (principal)
CPT/HCPCS: 36415; 84439; 84443; 84480

== ENCOUNTER 2025-05-13 08:40 | Outpatient (AMB) | payer OTHER, SELFPAY ==
--- NOTE | 2025-05-13 08:42 | A.OFFPC_ITS ---
Vital Signs 05/13/25 08:47 Height 6 ft 2 in Weight 223 lb BMI 28.6 BP 120/70 Blood Pressure Location Lt brachial Position Sitting Respiration 16 Pulse 69 Pulse Source Pulse Oximeter Temp 98.1 F Temp Source Temporal Artery Scan Pulse Oximetry (%) 96 Oxygen Delivery Method Room Air Intake Visit Reasons: f/u HLD Intake Note: Matt presents in the office today to follow up on his cholesterol. Patient is questions his thyroid stimulating hormone. Allergies No Known Allergies Allergy (Verified 05/13/25 08:44) Medication List - Last Reconciled 05/13/25 by Roshan Steel MD docosahexaenoic acid-epa 120-180 mg (Fish Oil) 1 cap PO DAILY multivitamin 1 tab PO DAILY Tobacco use date assessed: 05/13/25 Dental Screening Dental Screen Date: 05/13/25 Did you have a dental visit in the last 12 months?: No Did you have a dental problem in the last 6 months where you did not have access to dental care?: No Was dental information given to patient?: Patient has dentist HPI f/u HLD HPI Details 39 y/o male presents to /u D, labs. Labs drawn 04/05/25. Reviewed labs with pt. Elevated liver enzymes - AST 41, ALT 61. Triglycerides 161. TC 168. LDL 97. HDL low at 39. PSA 0.57. TSH <0.01 uIU/mL. PFSH Medical History Elevated cholesterol Anemia GERD (gastroesophageal reflux disease) Right foot injury Surgical History Hx of oral surgery Family History Father Diabetes Mother Osteoporosis Social History (Updated 05/13/25 @ 08:47 by Marialuisa Oneil CMA) Household Members: Family Housing: House Are you a primary attending ambulatory care to a significant other at home: Yes Do you presently have visiting nurse or other home services: Yes 75 years or older and lives alone: No Alcohol intake: current Alcohol intake frequency: a few times a month Alcohol type: beer Patient Tobacco Use Status: Former Tobacco user e-Cigarette/Vaping Use: Never Used Second Hand Smoke Exposure: No service: No Current occupational status: employed 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 [employer] Current occupational exposures/hazards: No Cognitive needs: No Hearing needs: No Vision needs: No Questionnaire Thrive Questionnaire Date Thrive assessed: 03/21/25 I am a: Patient What is your living situation today?: I have a steady place to live Within the past 12 months, did the food you bought not last and you didn't have the money to get more?: Never true Within the past 12 months, did you worry whether your food would run out before you got money to buy more?: Never true Do you have trouble paying for medicines?: No Do you have trouble getting transportation to medical appointments?: No Do you have trouble paying your heating and electricity bill?: No Do you have trouble taking care of your child, family member or friend?: No Do you have trouble with day-to-day activities such as bathing, preparing meals, shopping, managing finances, etc.?: No Are you currently unemployed and looking for a job?: No Are you interested in more education?: No Please select the resources that you would like help with: None Currently or been in a relationship where the following occur: No concerns reported THRIVE Score: 0 Review of Systems Const Denies chills, Denies fatigue, Denies fever(s), Denies headache(s) and Denies weakness ENT Denies dizziness and Denies headache(s) Card Denies dyspnea Resp Denies cough, Denies dyspnea, Denies wheezing and Denies other (shortness of breath) Musc Denies numbness and Denies tingling Neuro Denies dizziness, Denies headache(s), Denies numbness, Denies tingling and Denies weakness Psych Denies anxiety and Denies depression Endo Denies fatigue Aller/Immun Denies wheezing Physical exam (Primary Care) Vital Signs: Last Vital Signs Temp 98.1 F 05/13/25 08:47 Pulse 69 05/13/25 08:47 Resp 16 05/13/25 08:47 BP 120/70 05/13/25 08:47 Pulse Ox 96 05/13/25 08:47 Oxygen Delivery Method Room Air 05/13/25 08:47 BMI result Body Mass Index 28.6 Tobacco/Smoking Status: Tobacco use Status Tobacco use date assessed 05/13/25 05/13/25 08:50 Patient Tobacco Use Status Former Tobacco user 05/13/25 08:47 e-Cigarette/Vaping Use Never Used 05/13/25 08:47 Thrive Assessment: Date of Thrive Assessment Date Thrive assessed 03/21/25 05/13/25 08:43 Currently or been in a relationship where the following occur: No concerns reported Const General: well developed; No acute distress Nutritional Appearance: well nourished Orientation/consciousness: patient oriented x3 HENMT Head: Yes normocephalic and Yes atraumatic Eyes General: appearance normal, both eyes and all related structures Pupils: Equal, round and reactive pupils present EOM: EOMs intact bilaterally Resp Effort & Inspection: normal respiratory effort Auscultation: clear to auscultation bilaterally Cardio Rate: regular rate Rhythm: regular rhythm Heart sounds: S1 normal heart sound present, S2 normal heart sound present, no gallops, no murmurs and no rubs Neuro General: patient oriented x3 and gait normal Cranial nerves: Yes Equal, round and reactive pupils present Psych Affect: normal affect Coding Level of Care Code Est Pt Level 4 (23573) Diagnoses Hyperlipidemia E78.5 Low HDL (under 40) E78.6 Low TSH level R79.89 Elevated liver enzymes R74.8 Screening for prostate cancer Z12.5 Assessment & Plan Assessment & Plan (1) Hyperlipidemia: Code(s): E78.5 - Hyperlipidemia, unspecified Category: Medical Plan: TC and LDL cholesterol are good. Triglycerides mildly elevated and this may be secondary to his slightly elevated blood sugars HDL slightly low He is not taking any medications at this time regarding cholesterol. Continue healthy diet and increase exercise (2) Low HDL (under 40): Code(s): E78.6 - Lipoprotein deficiency Category: Medical Plan: As above, increase exercise (3) Low TSH level: Code(s): R79.89 - Other specified abnormal findings of blood chemistry Category: Medical Plan: TSH appears suppressed Referred to endocrinology (4) Elevated liver enzymes: Code(s): R74.8 - Abnormal levels of other serum enzymes Category: Medical Plan: Liver enzymes are elevated Encouraged good hydration, weight loss and exercise and decrease Tylenol and alcohol (5) Screening for prostate cancer: Code(s): Z12.5 - Encounter for screening for malignant neoplasm of prostate Category: Medical Plan: PSA was within normal range. We can continuing screening Orders: Orders Comprehensive [place]. Panel Fast Today R74.8 - Abnormal levels of other serum enzymes, Z00.00 - Encounter for general adult medical examination without abnormal findings Lipid Panel Today E78.6 - Lipoprotein deficiency, Z00.00 - Encounter for general adult medical examination without abnormal findings Hemoglobin A1c Today R73.01 - Impaired fasting glucose Referrals Endocrinology Referral R79.89 - Other specified abnormal findings of blood chemistry
--- OUTSIDE RECORDS SUMMARY | 2025-05-13 08:44 | XMS_ITS | Clinical Summary ---
Author Organization [facility] Address [address] [place], [place] [id number] Phone Care Team Providers Care Lockstitch Lining Maker Name Role Phone Roshan Steel MD Primary Care Provider Allergies No known active allergies Medications No known medications Active Problems No known active problems Immunizations Immunization Administration Dates Next Due COVID-19 [...] this topic Medical Devices Not on file Insurance O [facility] P[facility] PHCS S S PPO PHCS Care Teams Lockstitch Lining Maker Relationship Specialty Start Date End Date Roshan Steel MD [address] [place] [address] PCP - General Family Medicine 03/20/24 Additional Source Comments The information contained in this document represents components of the legal health record. It is not the complete legal health record.[facility]
[2025-05-13 08:47] VITALS: BP 120/70; PULSE 69; RESP 16; TEMP 36.7; O2SAT 96; BMI 28.6
== END 2025-05-13 09:20 | disposition home or self-care (01) ==
LOC: HO.HMCFM 08:41
PROVIDERS: PCP Family Medicine; Visit Provider Family Medicine
DX: E78.5 Hyperlipidemia, unspecified (principal); E78.6 Lipoprotein deficiency; R79.89 Other specified abnormal findings of blood chemistry; R74.8 Abnormal levels of other serum enzymes; Z12.5 Encounter for screening for malignant neoplasm of prostate

== ENCOUNTER 2025-06-13 13:48 | Outpatient (AMB) | payer OTHER, SELFPAY ==
--- NOTE | 2025-06-13 13:53 | A.OFFVIS_ITS ---
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 He reports no overt symptoms of hyperthyroidism, he was found to have abnormal thyroid function test during routine workup. Symptoms - Weight loss of approximately 15 pounds over the past six months, attributed to increased exercise and dietary changes due to high cholesterol. - Mild anxiety and shortness of breath during nervous situations. - Increased sweating and heat intolerance over the past few years. - No significant palpitations, tremor, diarrhea, or insomnia. - Slight nail fragility noticed. - Precipitating or alleviating factors: None identified - Recent illnesses, stressors, or exposures: Flu-like illness approximately six months ago; work-related stress due to organizational changes. - Previous episodes of hyperthyroidism: None known. - Family history of thyroid disease: No known history of thyroid disease or thyroid cancer. - Recent iodine exposure: None reported. - Current and prior treatments: None for thyroid; past multivitamin, fish oil, and magnesium use noted. He denies ever using biotin. FAMILY HISTORY: - Aunt of unspecified cancer, possibly chest-related - No known family history of thyroid or autoimmune diseases Physical exam: General: Well appearing. NAD. Neck/Thyroid: Thyroid not palpable, no nodules. Eyes: No conjunctival injection, not lid lag or proptosis CV: RRR, no murmur. No edema. Resp:Lungs clear to auscultation bilaterally Abdomen: Soft, nontender. 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 at home: Yes Do you presently have visiting nurse or other home services: Yes 75 years or older and lives alone: No Alcohol intake: current Alcohol intake frequency: a few times a month Alcohol type: beer Patient Tobacco Use Status: Former Tobacco user e-Cigarette/Vaping Use: Never Used Second Hand Smoke Exposure: No service: No Current occupational status: employed 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 Differential diagnosis include Graves disease, toxic thyroid nodule or thyroiditis. - Severity: Mild, no overt symptoms or complications such as atrial fibrillation or heart failure - Summary of liriano findings: Elevated cholesterol, potential subclinical hyperthyroidism with suppressed TSH but normal free T4 and total T3 PLAN: Etiology/Diagnosis: - Order thyroid uptake scan to assess iodine uptake - Blood tests: TSH, free T4, total T3, thyroid antibodies (TRAB, TPO) Symptom Control: - No medication prescribed due to absence of significant symptoms Monitoring: - Repeat TSH and other thyroid function tests - Monitor for any new symptoms or changes Patient Education: - Discussed potential implications of hyperthyroidism if left treated: Osteoporosis, arrhythmia - Advised on low iodine diet prior to scan - Informed about possible symptoms of overactive thyroid and when to seek care Follow-up: - Re-evaluate in two months with results from uptake scan and blood tests - Contact instructions for any new or worsening symptoms ORDERS: - Thyroid uptake scan - Bloodwork: TSH, free T4, total T3, TRAB, TPO antibodies - Patient instructed on low iodine diet prior to scan Plan 45 minutes spent reviewing previous records, labs, imaging, education and documenting in the chart Orders: Orders Thyroid Stimulating Immunoglob Today E05.90 - Thyrotoxicosis, unspecified without thyrotoxic crisis or storm, R94.6 - Abnormal results of thyroid function studies TSH reflex Free T4 Today E05.90 - Thyrotoxicosis, unspecified without thyrotoxic crisis or storm, R94.6 - Abnormal results of thyroid function studies NM thyroid w uptake Today E05.90 - Thyrotoxicosis, unspecified without thyrotoxic crisis or storm, R94.6 - Abnormal results of thyroid function studies Thyrotropin Receptor Antibody Today E05.90 - Thyrotoxicosis, unspecified without thyrotoxic crisis or storm, R94.6 - Abnormal results of thyroid function studies Thyroid Peroxidase Antibodies Today E05.90 - Thyrotoxicosis, unspecified without thyrotoxic crisis or storm, R94.6 - Abnormal results of thyroid function studies Scribe Plan - Not visible on output: Thyroid Uptake Scan: Patient Instructions 1. Medication and Iodine Restrictions Low-Iodine Diet: Begin a low-iodine diet 2 weeks before your scan and continue until the scan is complete. Avoid: Iodized salt, dairy products, seafood, seaweed, soy products, egg yolks, and foods colored with red dye #3. Allowed: Fresh fruits and vegetables, unsalted nuts, egg whites, non-iodized salt, and most fresh meats. Medications and Supplements: Stop thyroid hormone medications (levothyroxine, liothyronine, etc.) and antithyroid drugs (methimazole, PTU) as directed by your physician. Discontinue iodine-containing supplements, vitamins, and cough syrups at least 2 weeks prior. Inform your provider if you have had any recent imaging studies with iodinated contrast (CT scans, angiograms, etc.)?these may delay your scan for several weeks. 2. Fasting and Hydration Fasting: Do not eat or drink anything except water for at least 2 hours before and 2 hours after taking the radioactive iodine capsule or liquid. Hydration: Drink plenty of fluids before and after the scan. Void (urinate) frequently after the dose to help eliminate the radioactive material from your body. 3. Day of the Test and : Women of childbearing age: A test may be required before the scan. Do not undergo this test if you are or . mothers: Discontinue permanently after the test. Clothing: Wear comfortable clothing. You may be asked to remove jewelry or metal objects from the neck area. Procedure: You will be given a small dose of radioactive iodine (usually I-123 or I-131) by mouth. You will return for imaging and/or uptake measurements at specific times, typically 4?6 hours and/or 24 hours after the dose. For the scan, you will lie on your back with your neck extended. The camera will take images of your thyroid. 4. After the Test Radiation Safety: The amount of radioactivity is very low and safe, but you should: Wash your hands thoroughly after using the bathroom. Flush the toilet twice after each use for 24 hours. Avoid close, prolonged contact with infants, children, and women for 24 hours. Resume normal diet and medications unless otherwise instructed. 5. Additional Notes Bring a list of all medications and supplements you are taking. Notify the staff if you have had recent contrast imaging, are , or are . Low Iodine Diet: Patient Instructions Purpose A low iodine diet (LID) is recommended for a short period (typically 4?14 days) before radioactive iodine (MCKEON) therapy or scanning. The goal is to lower the body?s iodine stores, which may improve the effectiveness of MCKEON by increasing uptake in thyroid tissue or cancer cells. Duration Typical duration: 4?7 days is sufficient in most cases, especially in areas with adequate iodine nutrition. Maximum duration: 2 weeks. Longer restriction is not necessary and may increase risk of nutritional imbalance. Liriano Principles Limit iodine intake to <50 mcg/day. Avoid foods high in iodine. Do NOT confuse a low iodine diet with a low salt diet. You may use non-iodized salt. Foods to AVOID Food/Ingredient Reason Iodized salt, sea salt High in iodine Dairy products (milk, cheese, yogurt, butter, ice cream) High in iodine Egg yolks and whole eggs High in iodine Seafood (fish, shellfish, seaweed, kelp, sushi) Very high in iodine Commercial bakery products (may contain iodate dough conditioners) Possible iodine source Red dye #3 (E127, erythrosine) Contains iodine Soy products (soy milk, tofu, soy sauce) May contain iodine Multivitamins or supplements containing iodine Obvious source Cough syrups, kelp supplements, herbal remedies with seaweed High in iodine Processed foods with unknown salt source May contain iodized salt Foods ALLOWED Food/Ingredient Notes Fresh meats (beef, pork, poultry, celaya) Not processed/cured with iodized salt Egg whites No yolk Fresh fruits and vegetables All types Grains: plain rice, pasta, oats, unsalted matzo, homemade bread (with non- iodized salt) Avoid commercial breads Unsalted nuts and nut butters Check labels Oils and fats: olive oil, vegetable oil, unsalted margarine (check label) No butter Sugar, honey, maple syrup Coffee, tea, non-dairy creamers (check label) No milk/cream Non-iodized salt Use for seasoning Herbs and spices (not blends with salt) Sample Meal Plan Breakfast: Oatmeal made with water, topped with fresh fruit Black coffee or tea Lunch: Grilled chicken breast Steamed vegetables Rice or baked potato (no butter) Snack: Fresh fruit Unsalted nuts Dinner: Baked fish (if not restricted) or lean beef/poultry Salad with olive oil and vinegar Homemade bread (with non-iodized salt) Additional Tips Read all labels. Avoid products with ?iodized salt,? ?sea salt,? ?kelp,? ?algin,? or ?carrageenan.? Do not eat out unless you can confirm ingredients. Do not use dairy substitutes (soy, almond, oat milks) unless confirmed iodine- free. Continue prescribed medications unless otherwise instructed. Do not take multivitamins or supplements unless cleared by your physician. Safety and Monitoring Hyponatremia risk: Elderly patients or those at risk for low sodium should have serum sodium monitored, as LID can inadvertently reduce salt intake. Nutritional balance: The LID is temporary. If you have difficulty maintaining adequate nutrition, contact your care team. Coding Level of Care Code New Pt Level 4 (56344) Diagnoses Hyperthyroidism determined by thyroid function test E05.90; R94.6
[2025-06-13 13:54] VITALS: BP 120/68; PULSE 104; O2SAT 98; BMI 28.6
--- OUTSIDE RECORDS SUMMARY | 2025-06-13 17:14 | XMS_ITS | Clinical Summary ---
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 It is not the complete legal health record.[facility]
== END 2025-06-13 14:35 | disposition home or self-care (01) ==
LOC: HO.ENCR 13:49
PROVIDERS: PCP Family Medicine; Visit Provider Student in an Organized Health Care Education/Training Program
DX: E05.90 Thyrotoxicosis, unspecified without thyrotoxic crisis or storm (principal); R94.6 Abnormal results of thyroid function studies
CPT/HCPCS: 99204